=== PATIENT | female | born 1980 | race Caucasian/White ===

== ENCOUNTER → 2017-07-08 | Outpatient (CLI) | payer OTHER ==
[2017-07-08 12:57] LABS: BASO # 0.1 10^3/uL (0.0-0.2); BASO % 1.2 % (0.0-1.0); EOS # 0.1 10^3/uL (0.0-0.50); EOS % 1.1 % (0.0-3.0); IMMATURE GRANULOCYTE % 0.5 % (0-0); LYMPH # 2.5 10^3/uL (1.5-4.5); LYMPH % 37.7 % (24.0-44.0); MEAN CORPUSCULAR HEMOGLOBIN 31.7 pg (27.0-33.0); MEAN CORPUSCULAR HGB CONC 33.3 g/dl (32.0-36.5); MEAN CORPUSCULAR VOLUME 95.4 fl (80.0-96.0); MONO # 0.8 10^3/uL (0.0-0.8); NEUTROPHILS # 3.1 10^3/uL (1.8-7.7); NEUTROPHILS % 47.5 % (36.0-66.0); PLATELET COUNT, AUTOMATED 235 10^3/uL (150-450); RED CELL DISTRIBUTION WIDTH 11.5 % (11.5-14.5); WHITE BLOOD COUNT 6.5 10^3/uL (4.0-10.0)
== END ==
LOC: M SMT 11:04
PROVIDERS: ATTEND Advanced Practice Midwife
DX: O02.1 Missed abortion (principal)

== ENCOUNTER → 2017-10-18 | Outpatient (CLI) | payer OTHER ==
[2017-10-18 18:18] LABS: BASO % 0.5 % (0.0-1.0); EOS # 0.1 10^3/uL (0.0-0.50); EOS % 0.8 % (0.0-3.0); HEMATOCRIT 38.7 % (36.0-47.0); HEMOGLOBIN 13.4 g/dl (12.0-16.0); IMMATURE GRANULOCYTE % 0.5 % (0-3.0); LYMPH % 25.4 % (24.0-44.0); MEAN CORPUSCULAR HEMOGLOBIN 31.6 pg (27.0-33.0); MEAN CORPUSCULAR HGB CONC 34.6 g/dl (32.0-36.5); MEAN CORPUSCULAR VOLUME 91.3 fl (80.0-96.0); MONO # 1.3 10^3/uL (0.0-0.8); NEUTROPHILS # 4.4 10^3/uL (1.8-7.7); NEUTROPHILS % 56.8 % (36.0-66.0); PLATELET COUNT, AUTOMATED 201 10^3/uL (150-450); RED BLOOD COUNT 4.24 10^6/uL (4.00-5.40); RED CELL DISTRIBUTION WIDTH 11.8 % (11.5-14.5); WHITE BLOOD COUNT 7.8 10^3/uL (4.0-10.0)
[2017-10-18 23:21] LABS: CHLAMYDIA DNA AMPLIFICATION NEGATIVE (NEGATIVE); GC DNA AMPLIFICATION NEGATIVE (NEGATIVE)
[2017-10-20 11:29] LABS: RUBELLA IgG QUALITATIVE IMMUNE (IMMUNE)
[2017-10-20 11:32] LABS: HBsAg Prenatal NEGATIVE (NEGATIVE)
[2017-10-20 11:59] LABS: HIV 1&2 SCREEN CENTAUR NEGATIVE (NEGATIVE)
== END ==
LOC: M SMT 13:49
DX: Z34.81 Encounter for supervision of other normal pregnancy, first trimester (principal); Z3A.09 9 weeks gestation of pregnancy
CPT/HCPCS: 86762

== ENCOUNTER → 2017-11-09 | Outpatient (CLI) | payer OTHER | LOC: M SMT 14:40 | DX: Z13.79 Encounter for other screening for genetic and chromosomal anomalies (principal); Z3A.10 10 weeks gestation of pregnancy | CPT/HCPCS: 36415 ==

== ENCOUNTER → 2018-01-05 | Outpatient (CLI) | payer OTHER | LOC: M SMT 13:30 | DX: Z34.82 Encounter for supervision of other normal pregnancy, second trimester (principal) | CPT/HCPCS: 76811 ==

== ENCOUNTER → 2018-03-07 | Outpatient (CLI) | payer OTHER ==
[2018-03-07 19:31] LABS: HEMATOCRIT 34.8 % (36.0-47.0); HEMOGLOBIN 11.6 g/dl (12.0-15.5); MEAN CORPUSCULAR HEMOGLOBIN 31.6 pg (27.0-33.0); MEAN CORPUSCULAR HGB CONC 33.3 g/dl (32.0-36.5); MEAN CORPUSCULAR VOLUME 94.8 fl (80.0-96.0); PLATELET COUNT, AUTOMATED 201 10^3/uL (150-450); RED BLOOD COUNT 3.67 10^6/uL (4.00-5.40); RED CELL DISTRIBUTION WIDTH 12.6 % (11.5-14.5); WHITE BLOOD COUNT 8.2 10^3/uL (4.0-10.0)
[2018-03-07 19:47] LABS: GLUCOSE CHALLENGE TEST 1 HOUR 98 MG/DL (LESS THAN 140)
== END ==
LOC: M SMT 13:11
DX: Z36.89 Encounter for other specified antenatal screening (principal)
CPT/HCPCS: 82950

== ENCOUNTER → 2018-05-05 | Outpatient (REF) | payer OTHER, MEDICAID | LOC: M LAB REF 13:34 | DX: Z34.83 Encounter for supervision of other normal pregnancy, third trimester (principal) ==

== ENCOUNTER 2018-05-18 16:24 | Outpatient (CLI) | payer OTHER, MEDICAID | END 2018-05-18 19:20 | disposition home or self-care (01) | LOC: M LDO 16:24 | DX: O47.1 False labor at or after 37 completed weeks of gestation (principal); Z3A.38 38 weeks gestation of pregnancy | CPT/HCPCS: 59025 ==

== ENCOUNTER 2018-05-19 23:10 | Inpatient (IN) | payer OTHER ==
[2018-05-19] MEDS: LR 1,000 ML IV (23:32)
[2018-05-19 23:48] LABS: HEMATOCRIT 35.8 % (36.0-47.0); MEAN CORPUSCULAR HEMOGLOBIN 30.8 pg (27.0-33.0); MEAN CORPUSCULAR HGB CONC 33.5 g/dl (32.0-36.5); PLATELET COUNT, AUTOMATED 228 10^3/uL (150-450); RED BLOOD COUNT 3.89 10^6/uL (4.00-5.40); RED CELL DISTRIBUTION WIDTH 12.7 % (11.5-14.5); WHITE BLOOD COUNT 10.1 10^3/uL (4.0-10.0)
[2018-05-20] MEDS: PENICILLIN G POTASSIUM IV 5 MU in D5W MINI-BAG PLUS 100 ML IV (00:05)
[2018-05-20 00:19] LABS: AMPHETAMINES URINE REFLEX NEGATIVE (NEGATIVE); BARBITURATES URINE REFLEX NEGATIVE (NEGATIVE); BENZODIAZEPINES URINE REFLEX NEGATIVE (NEGATIVE); CANNABINOIDS URINE REFLEX NEGATIVE (NEGATIVE); COCAINE METABOLITE URINE REFLE NEGATIVE (NEGATIVE); METHADONE URINE REFLEX NEGATIVE (NEGATIVE); OPIATES URINE REFLEX NEGATIVE (NEGATIVE); PHENCYCLIDINE URINE REFLEX NEGATIVE (NEGATIVE)
[2018-05-20] MEDS: LACTATED RINGER'S 1000 ML IV (02:05)
[2018-05-20] MEDS: OXYTOCIN DRIP 30 UNITS in APPROPRIATE DILUENT 1 EA IV (02:05)
[2018-05-20 02:07] LABS: CONTROL LINE INT CTR LINE PRESENT
[2018-05-20 02:08] LABS: HIVSOURCE0 NEGATIVE (NEGATIVE)
[2018-05-20 02:10] LABS: HIV SOURCE PT 1 NEGATIVE (NEGATIVE)
[2018-05-20] MEDS: PENICILLIN G POTASSIUM IV 2.5 MU in APPROPRIATE DILUENT 1 EA IV (05:00)
[2018-05-20] MEDS ORDERED: FENTANYL 2MCG/ML ROPIVACAINE 0.2% IN 0.9% NACL 200ML IVBAG As Ordered (06:42)
[2018-05-20] MEDS ORDERED: FENTANYL/ROPIVACAINE/NACL BAG 200 ML EPIDURAL (08:00)
[2018-05-20] MEDS ORDERED: REFRIGERATOR IV KEYS XX (08:00)
[2018-05-20] MEDS ORDERED: ePHEDrine SULFATE 25 MG/5 ML(5MG/ML) SYRINGE IV (08:00)
[2018-05-20] MEDS ORDERED: NALOXONE INJ 0.4 MG/1 ML VIAL (J2310) IV (08:00)
[2018-05-20] MEDS ORDERED: diphenhydrAMINE INJ 50MG/ML VIAL (J1200) IV (08:00)
[2018-05-20] MEDS ORDERED: ONDANSETRON 4MG/2ML VIAL (J2405) IV ×2 (08:00→08:15)
[2018-05-20] MEDS ORDERED: EPIDURAL COMMENT XX (08:00)
[2018-05-20] MEDS ORDERED: LACTATED RINGER'S 1000 ML IV (08:00)
[2018-05-20] MEDS ORDERED: EPIDURAL/PCA KEYS XX (08:00)
[2018-05-20] MEDS ORDERED: OXYTOCIN DRIP 30 UNITS in APPROPRIATE DILUENT 1 EA IV (08:11)
[2018-05-20] MEDS ORDERED: LR 1,000 ML IV (08:11)
[2018-05-20] MEDS ORDERED: DIBUCAINE 1% OINTMENT 30GM TOP (08:15)
[2018-05-20] MEDS ORDERED: METHYLERGONOVINE MALEATE 0.2 MG TAB PO (08:15)
[2018-05-20] MEDS ORDERED: MEASLES,MUMPS,RUBELLA VACCINE INJ (MMR-II) (90707) SC (08:15)
[2018-05-20] MEDS ORDERED: RHOGAM 300 MCG (1500 IU) INJ (J2790) IM (08:15)
[2018-05-20] MEDS ORDERED: PROMETHAZINE 25 MG TAB PO (08:15)
[2018-05-20] MEDS ORDERED: DOCUSATE SODIUM 100 MG CAP PO (08:15)
[2018-05-20] MEDS: PRENATAL VITAMINS CHEWABLE TABLET PO (09:00)
[2018-05-20 12:44] LABS: HEPATITIS B SURFACE ANTIGEN NEGATIVE (NEGATIVE)
[2018-05-20 12:44] LABS: HEP C VIRUS AB INDEX SOURCE PT 0.1 INDEX (0.0-0.8)
[2018-05-20] MEDS: IBUPROFEN 800 MG TAB PO (15:11)
[2018-05-20] MEDS: ACETAMINOPHEN 500 MG TAB PO (17:25)
[2018-05-21] MEDS: IBUPROFEN 800 MG TAB PO ×2 (03:35→16:24)
[2018-05-21] MEDS: ACETAMINOPHEN 500 MG TAB PO ×2 (08:47→16:24)
[2018-05-21] MEDS: PRENATAL VITAMINS CHEWABLE TABLET PO (08:47)
== END 2018-05-21 16:50 | disposition home or self-care (01) | DRG 560 ==
LOC: M LDI 23:10 → M OBS 05-20 10:08
PROVIDERS: Obstetrics & Gynecology
PROC: 3E033VJ Introduction of Other Hormone into Peripheral Vein, Percutaneous Approach (ICD-10-PCS; 2018-05-19)
PROC: 10E0XZZ Delivery of Products of Conception, External Approach (ICD-10-PCS; principal; 2018-05-20)
PROC: 10907ZC Drainage of Amniotic Fluid, Therapeutic from Products of Conception, Via Natural or Artificial Opening (ICD-10-PCS; 2018-05-20)
DX: O99.824 Streptococcus B carrier state complicating childbirth (principal); Z3A.39 39 weeks gestation of pregnancy; O77.0 Labor and delivery complicated by meconium in amniotic fluid; Z37.0 Single live birth

== ENCOUNTER → 2019-07-27 | Outpatient (CLI) | payer MEDICAID, SELFPAY ==
[~2019-07-27] MED LIST: MAPA500T2 PO; MOTR200T44 PO; PRENTAB9 PO
--- NOTE | 2019-07-27 16:42 | REP ---
BILATERAL MAMMOGRAM WITH 3D TOMOSYNTHESIS, DIAGNOSTIC MAMMOGRAM LEFT BREAST AND LEFT BREAST ULTRASOUND: Reportedly there is a palpable lump in the left axillary region. The area is marked on the skin with a triangular marker. Family history of breast cancer at age 35 in maternal grandmother. [facility] lifetime risk of breast cancer is 14.4%. COMPARISON STUDY: 11/21/2015. MLO and CC views of both breasts were performed with 3D tomosynthesis. Moderate fibroglandular pattern is essentially unchanged with no new mass, architectural distortion or clustered microcalcifications. Real-time sonographic evaluation of the left axillary region demonstrates two morphologically normal lymph nodes, nonenlarged. Largest measures 1.1 x 0.9 x 0.5 cm. IMPRESSION: ACR 2 benign. No mass or clustered microcalcifications bilaterally. In the region of the palpable lump, left axilla two normal lymph nodes are seen. Clinical correlation and followup are recommended. Recommend followup mammogram in one year. BIRADS 2: BI-RADS/ACR category 2 mammogram. Benign Findings. This mammogram was interpreted with the aid of an FDA-approved computer-aided detection system. The patient states she had a clinical breast exam in 06/2019. The patient letter being requested is M2. Electronically Signed by Hal Oliveira MD 07/27/2019 04:58 P
== END ==
LOC: M RAD 12:26
PROVIDERS: ATTEND Advanced Practice Midwife
DX: D64.4 Congenital dyserythropoietic anemia (principal); Z80.3 Family history of malignant neoplasm of breast
CPT/HCPCS: 76642; 77066; G0279

== ENCOUNTER → 2020-04-25 | Outpatient (REF) | payer MEDICAID, OTHER | LOC: M SFHCWAGY 11:59 | PROVIDERS: ATTEND Advanced Practice Midwife | DX: Z12.4 Encounter for screening for malignant neoplasm of cervix (principal); R87.610 Atypical squamous cells of undetermined significance on cytologic smear of cervix (ASC-US) ==

== ENCOUNTER → 2020-05-30 | Outpatient (CLI) | payer OTHER | LOC: M LABSMTC 13:22 | PROVIDERS: ATTEND Family Medicine | DX: Z20.828 Contact with and (suspected) exposure to other viral communicable diseases (principal) | CPT/HCPCS: C9803; U0003 ==

== ENCOUNTER → 2020-07-10 | Outpatient (CLI) | payer OTHER | LOC: M LAB 13:21 | PROVIDERS: ATTEND Family Medicine | DX: F10.10 Alcohol abuse, uncomplicated (principal) ==